=== PATIENT | male | born 1985 | race Caucasian/White ===

== ENCOUNTER 2021-09-11 12:13 | Emergency (ER) | payer OTHER, SELFPAY ==
[2021-09-11 13:24] VITALS: BP 118/71; PULSE 74; RESP 16; TEMP 36.3; O2SAT 98
--- NOTE | 2021-09-11 14:01 | ED.URI ---
HPI - URI/Sore Throat General Chief Complaint: Upper Respiratory Infection Stated Complaint: Headache/Sinus Congestion Time Seen by Provider: 09/11/21 14:01 Source: patient, RN notes reviewed and old records reviewed Mode of arrival: ambulatory Limitations: no limitations History of Present Illness HPI Narrative: 36-year-old male presents to the [facility] with complaints of headache, cough, sinus pressure for 1 week. Had taken sinus meds but did not have the money to continue. States that he took him 3 days ago. Currently is a smoker. Not Covid or flu vaccinated. MD elicited complaint: rhinorrhea and nasal congestion Related Data Home Medications Medication Instructions Recorded Confirmed atorvastatin 09/11/21 baclofen mg 09/11/21 cyclobenzaprine mg 09/11/21 gabapentin 09/11/21 liraglutide [Victoza 3-Omar] mg SUBCUT 09/11/21 meloxicam 09/11/21 omeprazole 09/11/21 tramadol mg 09/11/21 trazodone 09/11/21 Allergies Allergy/AdvReac Type Severity Reaction Status Date / Time No Known Allergies Allergy Verified 09/11/21 14:40 Review of Systems Review of Systems: All systems reviewed & are unremarkable except as noted in HPI and below Constitutional: Constitutional: Reports no additional constitutional complaints, Denies chills and Denies fever(s) Eyes: Eyes: Reports no additional eye complaints ENT: Reports system reviewed and no additional complaints, except as documented Cardiovascular: Cardiovascular: Reports no additional cardiovascular complaints Respiratory: Respiratory: Reports as per HPI and Reports cough Gastrointestinal: Gastrointestinal: Reports no additional gastrointestinal complaints Musculoskeletal: Musculoskeletal: Reports as per HPI and Reports myalgias Integumentary/Breasts: Skin/Breast: Reports system reviewed and no additional complaints, except as docu Neurologic: Reports as per HPI and Reports headache(s) Psychiatric: Psychiatric: Reports no additional psychiatric complaints Allergic/Immunologic: Allergic/Immunologic: Reports no additional allergic/immunologic complaints [facility] Past Medical History Medical History (Updated 09/12/21 @ 08:59 by Rosemary Walls) Chronic back pain Family History Family History Father Asthma Grandparent Carcinoma of colon Diabetes mellitus Mother Family history of diabetes mellitus in first degree relative Other Family history of elevated blood lipids Social History Social History (Reviewed 09/11/21 @ 14:12 by Rsoemary Fuentes Smoking status: Current every day smoker Alcohol intake: never Comments At the time of my signature, I reviewed and agree with the nursing past medical, surgical, social, and family history. There is no relevant family history pertinent to the patient complaint. Exam Const: General: no acute distress Nutritional Appearance: well nourished and obese Orientation/consciousness: patient oriented x3 Limitations: no limitations HENMT: Head: normal to inspection Ears: external ears normal, TM's normal bilaterally and EAC's normal General nose exam: Normal external nose present, Normal nares present and Normal nasal mucous membranes and turbinates present Face and sinus: normal facial exam and sinuses nontender Mouth: Yes Normal oral and palatal mucosa present Throat: posterior oropharynx normal, tonsils normal and uvula midline Eyes: Conjunctivae: conjunctivae normal Pupils: Equal, round and reactive pupils present Neck: Neck: normal visual inspection, no lymphadenopathy and no meningeal signs Chest: Chest palpation & inspection: normal inspection of the chest Resp: Effort & Inspection: normal respiratory effort and no use of accessory muscles Auscultation: clear to auscultation bilaterally, no crackles, no rales, no rhonchi and no wheezes Cardio: Rate: regular rate Rhythm: regular rhythm Back/Spine/Pelvis: Back: no CVA tenderness Skin
[2021-09-12 14:36] LABS: SARS-CoV-2 RNA PCR Negative
== END 2021-09-11 14:35 | disposition home or self-care (01) ==
PROVIDERS: Emergency Provider Nurse Practitioner
DX: J06.9 Acute upper respiratory infection, unspecified (principal); Z20.822 Contact with and (suspected) exposure to COVID-19
CPT/HCPCS: 87081; 87804; 87880; 99213; C9803; G0463; U0003; U0005

== ENCOUNTER 2024-03-20 14:04 | Emergency (ER) | payer OTHER, SELFPAY ==
--- NOTE | ~2024-03-20 | XR_ITS ---
Left wrist Technique: PA, oblique, lateral, and ulnar deviation views were obtained. Clinical History: Injury Findings: No acute fracture or dislocation is seen. Osseous alignment is anatomic. Joint spaces are p reserved. Soft tissues are unremarkable. Impression: Unremarkable left wrist radiographs. Reviewed, dictated and finalized at location . Impression: Unremarkable left wrist radiographs.
[2024-03-20 14:15] VITALS: BP 122/80; PULSE 59; RESP 18; TEMP 36.8; O2SAT 99
--- NOTE | 2024-03-20 14:24 | ED.UPPEXIN ---
HPI - Extremity Injury (Upper) General Chief Complaint: Extremity Injury, Upper Stated Complaint: left hand swollen History of Present Illness HPI narrative: Patient presents with left wrist pain and swelling. No deformity noted no open areas noted no bruising noted. Related Data Home Medications Medication Instructions Recorded Confirmed atorvastatin 20 mg tablet 09/11/21 cyclobenzaprine 10 mg tablet mg 09/11/21 gabapentin 800 mg tablet 09/11/21 omeprazole 20 mg capsule,delayed 09/11/21 release trazodone 50 mg tablet 09/11/21 metoclopramide HCl 10 mg tablet mg 03/20/24 naproxen 500 mg tablet mg 03/20/24 Allergies Allergy/AdvReac Type Severity Reaction Status Date / Time No Known Allergies Allergy Verified 06/16/23 09:49 Review of Systems Review of Systems: CONSTITUTIONAL: Denies fever, chills, or sweats. EYES: Denies visual changes, redness, or discharge. ENT: Denies rhinorrhea, congestion, sore throat, or otalgia. CARDIOVASCULAR: Denies chest pain, palpitations, or edema. RESPIRATORY: Denies cough or dyspnea. GASTROINTESTINAL: Denies abdominal pain, nausea, vomiting, or diarrhea. GENITOURINARY: Denies dysuria or hematuria. SKIN: Denies rash or itching. MUSCULOSKELETAL: Denies back pain, joint pain, or myalgia. NEUROLOGIC: Denies headache, numbness, or weakness. PSYCHIATRIC: Denies anxiety or depression. [facility] Past Medical History Medical History (Updated 03/20/24 @ 14:27 by YOLANDE Mon) Chronic back pain Family History Family History (System 06/16/23 @ 09:49 by Tono Spencer) Father Asthma Grandparent Carcinoma of colon Diabetes mellitus Mother Family history of diabetes mellitus in first degree relative Other Family history of elevated blood lipids Social History Social History (System 06/16/23 @ 09:49 by Tono Spencer) Smoking status: Current every day smoker Alcohol intake: never Comments At time of signature, agree with nursing past medical, surgical, social and family history. There is no relevant family history pertinent to the presenting complaint Exam Narrative: GENERAL: Well-appearing, well-nourished, and in no acute distress. HEAD: Normocephalic, atraumatic. EYES: PERRLA and EOMI. ENT: Nares clear, no rhinorrhea or epistaxis. Mucous membranes moist. NECK: Supple. CHEST: Clear to auscultation. No respiratory distress. HEART: Regular rate and rhythm. No murmur heard. Normal peripheral pulses. ABDOMEN: Soft, nontender, nondistended, normal active bowel sounds. EXTREMITIES: Normal range of motion. No edema. HAND EXAM - Skin intact, no laceration, no swelling, no erythema, normal digit cascade with flexion of fingers, median nerve, ulnar nerve, radial nerve is intact. Normal sensation of each side of each finger, can perform `ok? sign, `cross over finger test of index and middle fingers? and `thumbs up? sign, normal thumb opposition, no scissoring. good capillary refill and radial pulse. normal flexion and extension of fingers and wrist. normal supination at wrist. Normal forearm and elbow exam. SKIN: Warm, dry, no rash. NEURO: No focal deficits. Alert and oriented x3. [place] Coma Scale Eye Opening: Spontaneous 4 [place] Coma Scale Motor: Obeys Commands 6 [place] Coma Scale Verbal: Oriented 5 [place] Coma Scale Total 15 Course Course Level of Care: Express Care Visit Vital Signs Vital signs: Vital Signs Temperature 36.8 C 03/20/24 14:15 Pulse Rate 59 L 03/20/24 14:15 Respiratory Rate 18 03/20/24 14:15 Blood Pressure 122/80 03/20/24 14:15 Pulse Oximetry 99 03/20/24 14:15 Oxygen Delivery Room Air 03/20/24 14:15 Temperature 36.8 C 03/20/24 14:15 Pulse Rate 59 L 03/20/24 14:15 Respiratory Rate 18 03/20/24 14:15 Blood Pressure 122/80 03/20/24 14:15 Pulse Oximetry 99 03/20/24 14:15 Oxygen Delivery Room Air 03/20/24 14:15 Discharge Plan Discharge Clinical Impression: Hand contusion,
== END 2024-03-20 14:37 | disposition home or self-care (01) ==
PROVIDERS: Emergency Provider Nurse Practitioner Family
DX: S60.222A Contusion of left hand, initial encounter (principal); S60.212A Contusion of left wrist, initial encounter; X58.XXXA Exposure to other specified factors, initial encounter
CPT/HCPCS: 73110; 99213; G0463